=== PATIENT | female | born 1955 | race Caucasian/White ===

== ENCOUNTER → 2019-05-16 | Outpatient (CLI) | payer MEDICARE, MEDICAID, SELFPAY | PROVIDERS: PCP Internal Medicine; Visit Provider Internal Medicine | DX: C34.2 Malignant neoplasm of middle lobe, bronchus or lung (principal); R91.1 Solitary pulmonary nodule; J90 Pleural effusion, not elsewhere classified | CPT/HCPCS: 32405; 36415; 71045; 77012; 81210; 81235; 81275; 85610; 88271; 88274; 88275; 88305; 88342; 88360; 88381 ==

== ENCOUNTER 2019-07-29 07:32 | Outpatient (RCR) | payer MEDICARE, MEDICAID, SELFPAY ==
[2019-06-24 14:30] VITALS: BMI 36.5
== END 2019-09-09 08:52 | disposition home or self-care (01) ==
LOC: ANHWOC 07:32
PROVIDERS: PCP Internal Medicine; Visit Provider Podiatrist Foot & Ankle Surgery
DX: G62.89 Other specified polyneuropathies (principal); L97.429 Non-pressure chronic ulcer of left heel and midfoot with unspecified severity
CPT/HCPCS: 29445; 36415; 83036; 99212; 99213; G0463

== ENCOUNTER 2019-08-19 13:30 | Emergency (ER) | payer MEDICARE, MEDICAID, SELFPAY ==
[2019-08-19] VITALS (7 sets, daily range): BP systolic 107–148; BP diastolic 62–87; PULSE 98–160; RESP 17–31; TEMP 37.4; O2SAT 94–96
--- NOTE | ~2019-08-19 | XR_ITS ---
EXAMINATION: XR chest 1V portable DATE: 08/19/2019 14:15 INDICATION: Cough. TECHNIQUE: A single frontal view of the chest was obtained. COMPARISON: PET/CT 06/11/2019 FINDINGS: There are airspace opacities in right mid and lower lung zones. There is a nodule in left u pper lung zone. There is a moderate-sized right pleural effusion. No pneumothorax. The heart size is normal. There is a prominent left paracardial fat pad. There is mediastinal lymphadenopathy. IMPRESSION: 1. Airspace opacities in right mid and lower lung zones and nodule in left upper lung zone, consisten t with primary bronchogenic carcinoma and metastatic disease. 2. Worsened moderate-sized right pleural effusion. 3. Worsened mediastinal lymphadenopathy, consistent with metastatic disease. Reviewed, dictated and finalized at location A. ESS CLEANER IMPRESSION: 1. Airspace opacities in right mid and lower lung zones and nodule in left uppe r lung zone, consistent with primary bronchogenic carcinoma and metastatic dise ase. 2. Worsened moderate-sized right pleural effusion. 3. Worsened mediastinal lymphadenopathy, consistent with metastatic disease.
--- NOTE | 2019-08-19 13:34 | ECG_ITS ---
Measurements Intervals [place] Rate: 160 P: WI: 0 QRS: -42 QRSD: 86 T: 67 QT: 272 QTc: 445 Interpretive Statements ATRIAL FIBRILLATION WITH RAPID VENTRICULAR RESPONSE LEFT AXIS DEVIATION ANTEROSEPTAL INFARCT, AGE INDETERMINATE BORDERLINE ST-T WAVE ABNORMALITY- LATERAL LEADS BASELINE ARTIFACT- I, II, III, AVR, AVL, AVF, V1 ABNORMAL ECG Electronically Signed On 08-19-2019 13:37:48 ELEMENTARY READING TUTOR by Rodriguez Heart D.O.
--- NOTE | 2019-08-19 13:34 | ED.SOB ---
HPI - SOB/Dyspnea General Chief Complaint: Shortness of Breath/Dyspnea Stated Complaint: SOB Time Seen by Provider: 08/19/19 13:34 Source: patient Mode of arrival: EMS Limitations: no limitations History of Present Illness HPI Narrative: Pt is a 63 y/o female, with a H/o COPD, who presents to the ED, via EMS, with c/o SOB that started last night. Pt was Dx with lung CA on July 14 and she has been on O2 since June 10. Pt is a 1PPD smoker. She denies a cough, fever, or palpitations. Pt is not undergoing chemotherapy and she does not have a treatment plan set up yet. Her oncologist is Dr. Orantes at the [facility] in [place]. She denies a H/o AFIB. MD elicited complaint: shortness of breath Pertinent past history: COPD Onset (ago): day(s) (last night) Context: other (rencently Dx with lung CA) Known history of: COPD and other (lung CA) Associated symptoms: denies other symptoms Related Data Home Medications Medication Instructions Recorded Confirmed amlodipine 10 mg tablet 10 mg PO DAILY 07/22/19 bupropion HCl 100 mg tablet,12 hr 100 mg PO DAILY 07/22/19 sustained-release furosemide 20 mg tablet 20 mg PO QAM PRN 07/22/19 gabapentin 800 mg tablet 800 mg PO TID 07/22/19 lorazepam 1 mg tablet 1 mg PO TID PRN 07/22/19 nebivolol 10 mg tablet 10 mg PO DAILY 07/22/19 omeprazole 20 mg capsule,delayed 20 mg PO DAILY 07/22/19 release umeclidinium 62.5 mcg-vilanterol 1 inhalation INHALATION DAILY 07/22/19 25 mcg/actuation powdr for inhalation Allergies Allergy/AdvReac Type Severity Reaction Status Date / Time No Known Allergies Allergy Verified 08/19/19 13:47 Review of Systems Review of Systems: All systems reviewed & are unremarkable except as noted in HPI and below Constitutional: Constitutional: Denies fever(s) Cardiovascular: Cardiovascular: Denies palpitations Respiratory: Respiratory: Denies cough and Reports dyspnea PMFSH Past Medical History Medical History Amputation toe Right 3rd Left Big toe Chicken pox Chronic bronchitis COPD (chronic obstructive pulmonary disease) Depression Diabetic neuropathy GERD (gastroesophageal reflux disease) Hypercholesterolemia Hypertension Hypothyroidism Mass of lung Osteoarthritis Post-menopausal Type 2 diabetes mellitus Surgical History Surgical History Status post debridement Foot X2 Family History Family History (Updated 07/22/19 @ 07:49 by Indira Watson, [facility]) Father Type 2 diabetes mellitus Mother Brain aneurysm Other Cerebrovascular accident Diabetes mellitus Family history of coronary artery disease Family history of elevated blood lipids Hypertension Social History Social History (Updated 08/19/19 @ 13:49 by Rhina Rodriguez) Smoking packs per day: 1 Smoking cigarettes per day: 20.0 Smoking status: Current every day smoker Second hand tobacco smoke exposure: Yes Alcohol intake: never Gender identity (if verbalized by the patient): Female Exam Narrative: Exam Narrative: APPEARANCE: Ill in appearance resting in bed EYES: EOMI HEENT: Normocephalic, atraumatic, OMM RESPIRATORY: Mild respiratory distress, decreased breath sounds at bilateral lower lung erickson with coarse breath sounds bilaterally CARDIOVASCULAR: Tachycardic and irregular without murmurs rubs or gallops. ABDOMINAL: Soft, nontender, nondistended, no rebound or guarding MUSCULOSKELETAl: Moves all extremities. No clubbing, cyanosis or edema. NEURO: Awake and alert x 3. Following commands, speech normal, no focal deficits SKIN:: Warm, dry. No rashes lesions or abrasions PSYCHIATRIC: Normal affect/mood, Course Course Emergency Course: Reviewed patient's old records including oncology consult scanned into record and from July 08, 2019. Patient states she has not had any follow-up since that time Discussed with patient my con
[2019-08-19] MEDS: methylPREDNISolone SOD SUCC 125 MG VIAL IV PUSH (13:49)
[2019-08-19] MEDS: LACTATED RINGERS 1,000 ML 999 ML IV CONT (13:51)
[2019-08-19 13:58] LABS: Alveolar/Arterial O2 Gradient 154.3 mmHg; Base Excess ABG -1.7 mEq/l (+/-2.0); Fractional Inspired Oxygen 36 %; HCO3 ABG 21.8 mEq/l (22.0-26.0); Oxygen Content ABG 14.8 %vol (16.0-22.0); Oxygen Saturation ABG 93.4 % (95.0-100.0); Oxyhemoglobin 91.3 % THb (90.0-100.0); PO2 ABG 64.1 mmHg (80.0-100.0); PO2 FiO2 Ratio Arterial Blood 1.78 %; Total Hemoglobin 11.5 g/dL (12.0-18.0); pH ABG 7.438 (7.350-7.450)
[2019-08-19 13:59] LABS: Device NASAL CANNULA; Site Drawn RIGHT BRACHIAL
[2019-08-19 15:25] LABS: Basophils Percent Auto 0.2 % (0.2-1.2); Eosinophils Percent Auto 0.1 % (0-4.4); Hematocrit 37.8 % (37.0-47.0); Hemoglobin 10.6 g/dL (12.0-15.0); Immature Granulocyte Percent A 0.7 % (0-0.5); Lymphocytes Absolute Auto 0.64 K/mm3 (0.9-3.2); Lymphocytes Percent Auto 4.4 % (18.3-44.2); Mean Corpuscular Hemoglobin 25.4 pg (26-34); Mean Corpuscular Volume 90.6 fl (80-100); Mean Platelet Volume 9.3 fl (7.4-10.4); Monocytes Absolute Auto 0.7 K/mm3 (0.1-0.6); Monocytes Percent Auto 4.6 % (2.6-8.5); Neutrophils Absolute Auto 13.1 K/mm3 (1.3-6.7); Platelet Count Result 272 k/mm3 (150-375); Red Blood Count 4.17 M/mm3 (4.2-5.4); Red Cell Distribution Width 17.7 % (11.5-14.5); White Blood Count 14.6 K/mm3 (4.5-10.0)
[2019-08-19 15:34] LABS: Hypochromasia 1+ (NORMAL); Platelet Estimate Adequate (Adequate); Stomatocytes 1+ (NORMAL)
[2019-08-19 15:37] LABS: Lactic Acid Reflex 1.3 mmol/L (0.7-2.1)
[2019-08-19 15:38] LABS: Alanine Aminotransferase 19 U/L (4-35); Albumin Level 3.1 g/dL (3.5-5.1); Alkaline Phosphatase 162 U/L (38-126); Aspartate Amino Transferase 17 U/L (14-36); Bilirubin,Total 0.7 mg/dL (0.2-1.3); Blood Urea Nitrogen 21 mg/dL (7-17); Calcium 8.7 mg/dL (8.4-10.2); Carbon Dioxide 23 mmol/L (22-30); Chloride 104 mmol/L (98-107); Estimated CRCL calculation 67 ml/min; Estimated Glomerular Filt Rate > 60; Glucose 172 mg/dL (65-105); Potassium 4.6 mmol/L (3.4-5.0); Sodium 137 mmol/L (137-145)
[2019-08-19 15:40] LABS: INR 1.1; Prothrombin Time 13.4 Seconds (11.1-14.7)
[2019-08-19 15:41] LABS: Partial Thromboplastin Time 33.2 SECONDS (22.3-36.8)
[2019-08-19 15:50] LABS: NT Pro B Type Natriuretic Pept 8640 PG/ML (5-100); Troponin I < 0.012 ng/mL (0.000-0.034)
--- NOTE | 2019-08-19 16:38 | PC.NURSE ---
[facility] AT BEDSIDE TO [facility].
--- NOTE | 2019-08-19 16:44 | PCCCNOTE ---
Met with patient at bedside; spoke about recent diagnosis (terminal CA); pt lives alone with limited support' MD ordered hospice consult and pt is agreeable. Choices provided and [facility] called. Plan to discharge home with hospice care.
[2019-08-19] MEDS: IPRATROPIUM BR 0.02% INH SOLN 0.5 MG/2.5 ML VIAL INHALATION (17:14)
[2019-08-19 18:02] LABS: Glucose Point of Care 359 (65-105)
== END 2019-08-19 18:37 | disposition hospice, home (50) ==
PROVIDERS: Emergency Provider Emergency Medicine; PCP Internal Medicine
DX: C80.1 Malignant (primary) neoplasm, unspecified (principal); C78.02 Secondary malignant neoplasm of left lung; I48.91 Unspecified atrial fibrillation; F17.210 Nicotine dependence, cigarettes, uncomplicated; F32.9 Major depressive disorder, single episode, unspecified; E11.42 Type 2 diabetes mellitus with diabetic polyneuropathy
CPT/HCPCS: 36415; 36600; 71045; 80053; 82805; 82948; 83605; 83880; 84484; 85025; 85610; 85730; 87040; 93005; 94640; 96361; 96365; 96366; 96375; 99284; J2930; J7120